=== PATIENT | male | born 1960 | race Caucasian/White ===

== ENCOUNTER 2021-10-20 12:46 | Outpatient (CLI) | payer OTHER | END 2021-10-20 12:47 | disposition critical access hospital (66) | LOC: EMS 12:46 | DX: R55 Syncope and collapse (principal) | CPT/HCPCS: A0425; A0427 ==

== ENCOUNTER 2021-10-20 13:17 | Emergency (ER) | payer OTHER ==
--- NOTE | 2021-10-20 13:29 | ED Physician Documentation ---
PD HPI SYNCOPE - Stated complaint Stated Complaint: LOC/BACK TO BASELINE - Chief complaint Chief Complaint: Neuro - History obtained from History obtained from: Patient - Additional information Additional information: Relatively healthy 60-year-old gentleman visiting family from [place]. He has history of cervical stenosis and chronic cough, not on any medications. No history of heart problems. He was driving today and felt a brief discomfort in the right anterior neck and reached up and pressed on the right anterior neck and then had a syncopal episode. The pain was only about 5 seconds before he passed out. He was reportedly unconscious for 15 to 30 seconds and then has made a full recovery and is asymptomatic at this time. No recent trouble breathing. No chest pains. No pedal edema or calf pain. Review of Systems Ten Systems: 10 systems reviewed and negative Constitutional: denies: Fever, Chills, Myalgias, Fatigue Nose: denies: Rhinorrhea / runny nose Cardiac: denies: Chest pain / pressure, Palpitations Respiratory: denies: Dyspnea, Cough PD PAST MEDICAL HISTORY - Past Medical History Past Medical History: Yes Other Past Medical History: Cervical spinal stenosis - Allergies Allergies/Adverse Reactions: Allergies Allergy/AdvReac Type Severity Reaction Status Date / Time doxycycline Allergy Rash Verified 10/20/21 13:22 - Living Situation Living Situation: reports: With spouse/s.o. - Social History Does the pt smoke?: No - Family History Family history: reports: Non contributory PD ED PE NORMAL - Vitals Vital signs reviewed: Yes - General General: Alert and oriented X 3, No acute distress - HEENT HEENT: PERRL, EOMI - Neck Neck: Supple, no meningeal sign, No bony TTP, No JVD, No bruit - Cardiac Cardiac: RRR, No murmur - Respiratory Respiratory: No respiratory distress, Clear bilaterally - Abdomen Abdomen: Non tender - Extremities Extremities: No edema, No calf tenderness / cord - Neuro Neuro: Alert and oriented X 3, No motor deficit, No sensory deficit, Normal speech Results - Vitals Vitals: Vital Signs - 24 hr 10/20/21 10/20/21 10/20/21 13:22 13:26 14:32 Temperature 36.5 C 36.5 C Heart Rate 66 66 Heart Rate [ 61 Sitting] Heart Rate [ 76 Standing] Heart Rate [ 58 L Supine] Respiratory 16 16 Rate Blood Pressure 157/69 H 157/69 H Blood Pressure 139/82 H [Sitting] Blood Pressure 113/85 H [Standing] Blood Pressure 137/90 H [Supine] O2 Saturation 97 97 10/20/21 10/20/21 15:26 16:50 Temperature 37.4 C Heart Rate 55 L 61 Heart Rate [ Sitting] Heart Rate [ Standing] Heart Rate [ Supine] Respiratory 15 16 Rate Blood Pressure 133/81 H 124/72 Blood Pressure [Sitting] Blood Pressure [Standing] Blood Pressure [Supine] O2 Saturation 98 99 Oxygen O2 Source Room air - EKG (time done) 1335 Rate: Rate (enter#) (59) Rhythm: NSR Perkins: Normal Intervals: Normal MO QRS: Normal Ischemia: Non specific changes (There is mild anterior ST elevation, about a millimeter at most in V2 and V3. It is concave and therefore less likely to be ischemic. There are no reciprocal changes. No prior EKGs available for comparison.) - Labs Labs: Laboratory Tests 10/20/21 10/20/21 10/20/21 13:27 13:27 13:27 WBC 5.6 RBC 4.20 L Hgb 13.1 L Hct 38.3 L MCV 91.2 MCH 31.2 H MCHC 34.2 RDW 12.7 Plt Count 267 MPV 9.8 Neut # (Auto) 2.9 Lymph # (Auto) 1.6 [place] # (Auto) 0.9 Eos # (Auto) 0.1 Baso # (Auto) 0.0 Absolute Nucleated RBC 0.00 Nucleated RBC % 0.0 D-Dimer Sodium 138 Potassium 4.0 Chloride 104 Carbon Dioxide 27 Anion Gap 7.0 BUN 19 Creatinine 1.0 Estimated GFR (MDRD) 77 L Glucose 102 H Calcium 9.9 Total Bilirubin 0.8 AST 25 ALT 38 Alkaline Phosphatase 34 L Troponin I High Sens 4.0 B-Natriuretic Peptide Total Protein 6.7 Albumin 4.1 Globulin 2.6 Albumin/Globulin Ratio 1.6 Lipase 33 10/20/21 10/20/21 13:27 13:35 WBC RBC Hgb Hct MCV MCH MCHC RDW Plt Count MPV Neut # (Auto) Lymph # (Auto) [place] # (Auto) Eos # (Auto) Baso # (Auto) Absolute Nucleated RBC Nucleated RBC % D-Dimer < 200.0 L Sodium Potassium Chloride Carbon Dioxide Anion Gap BUN Creatinine Estimated GFR (MDRD) Glucose Calcium Total Bilirubin AST ALT Alkaline Phosphatase Troponin I High Sens B-Natriuretic Peptide 10 Total Protein Albumin Globulin Albumin/Globulin Ratio Lipase PD MEDICAL DECISION MAKING - ED course ED course: 60-year-old gentleman presents after syncopal episode while driving. He is traveling so differential includes PE albeit he is not with any chest pain or trouble breathing. He felt some anterior neck pain at the time which is now mostly resolved, but it feels tender there he says. Given that he grabbed his neck right before the syncope my suspicion is he stimulated his carotid bodies causing the syncope his ED work-up was relatively unremarkable save very mild anemia which was discussed with the patient. Updating the and patient at the bedside they mentioned that they have a friend who is a emergency physician with 30 years experience and he recommended CT angiography of the head and neck. I discussed with him that I think this would be low yield but I am happy to order it. These were done without pertinent positive findings. He remained stable through ED observation. No ectopy, chest pain or syncope. Departure - Departure Disposition: 01 Home, Self Care Clinical Impression: Neck pain Syncope Qualifiers: Syncope type: vasovagal syncope Qualified Code(s): R55 - Syncope and collapse Condition: Good Record reviewed to determine appropriate education?: Yes Instructions: ED Syncope Vasovagal Comments: Take the copies of the results with you home and follow-up with your primary care physician on return to [place]. Return for new or worsening symptoms. Discharge Date/Time: 10/20/21 16:56
[2021-10-20 13:38] LABS: BASOPHILS % (AUTO) 0.5 %; EOSINOPHILS # (AUTO) 0.1 10^3/uL (0.0-0.7); EOSINOPHILS % (AUTO) 2.5 %; HCT - HEMATOCRIT 38.3 % (42.0-52.0); HGB - HEMOGLOBIN 13.1 g/dL (14.0-18.0); LYMPHOCYTES # (AUTO) 1.6 10^3/uL (1.5-3.5); LYMPHOCYTES % (AUTO) 28.8 %; MEAN CORPUSCULAR HEMOGLOBIN 31.2 pg (27.0-31.0); MEAN CORPUSCULAR HGB CONC 34.2 g/dL (32.0-36.0); MEAN CORPUSCULAR VOLUME 91.2 fL (80.0-94.0); MEAN PLATELET VOLUME 9.8 fL (7.4-11.4); MONOCYTES # (AUTO) 0.9 10^3/uL (0.0-1.0); MONOCYTES % (AUTO) 15.3 %; NEUTROPHILS # (AUTO) 2.9 10^3/uL (1.5-6.6); NEUTROPHILS % (AUTO) 52.5 %; PLT - PLATELET COUNT 267 10^3/uL (130-450); RED CELL DISTRIBUTION WIDTH 12.7 % (12.0-15.0); WHITE BLOOD COUNT 5.6 x10^3/uL (4.8-10.8)
[2021-10-20 14:11] LABS: ALBUMIN 4.1 g/dL (3.2-5.5); ALBUMIN/GLOBULIN RATIO 1.6 (1.0-2.2); BILIRUBIN,TOTAL 0.8 mg/dL (0.2-1.0); CALCIUM 9.9 mg/dL (8.5-10.3); TOTAL PROTEIN 6.7 g/dL (6.7-8.2)
[2021-10-20] MEDS ORDERED: IOPAMIDOL-300 100 ML VIAL ONE (14:56)
--- NOTE | 2021-10-20 16:33 | CT Report ---
PROCEDURE: ANGIO HEAD W/WO INDICATIONS: syncope/ neck pain CONTRAST: IV CONTRAST: Isovue 300 ml: 80 PO CONTRAST: *NO PO CONTRAST TECHNIQUE: Precontrast 4.5 mm thick angled axial sections acquired from the foramen magnum to the vertex. Afte r the administration of intravenous contrast, 1 mm thick sections acquired through the [place] of [place] is. Postcontrast 4.5 mm thick sections then re-acquired from the foramen magnum to the vertex. 3-di mensional rykszqy-rrigxsvni-ohtgpgzemx (MIP) and/or volume rendering reformats were acquired of the c entral intracranial vasculature. For radiation dose reduction, the following was used: automated ex posure control, adjustment of mA and/or kV according to patient size. COMPARISON: None FINDINGS: Image quality: Suboptimal due to contrast bolus timing. Anterior circulation: Intracranial internal carotid arteries are normal in size and flow. The flow within the paired anterior cerebral arteries is normal and symmetric. The flow within the middle cer ebral arteries is normal and symmetric. The anterior communicating artery is seen. No aneurysms are seen. Posterior circulation: The right vertebral artery is congenitally diminutive. Visualized portions of the vertebral arteries are normally opacified, and join to form a normal appearing basilar artery. V isible cerebellar arteries are patent. Flow within the posterior cerebral arteries is normal and symm etric. No aneurysms are seen. CSF spaces: Ventricles are normal in size and shape. Basal cisterns are patent. No extra-axial flu id collections. Brain: No midline shift. No intracranial bleeds or masses. Celis-white matter interface appears int act. Skull and face: Calvarium and facial bones appear intact, without suspicious lesions. Sinuses: Visualized sinuses and mastoids are clear. IMPRESSION: 1. No CT evidence of acute intracranial process. 2. Normal CTA of the brain without evidence of acute arterial stenosis, occlusion, or aneurysm. Reviewed by: Nuria Agudelo MD on 10/20/2021 4:32 PM PDT Approved by: Nuria Agudelo MD on 10/20/2021 4:32 PM PDT Station ID: [id number]
--- NOTE | 2021-10-20 16:37 | CT Report ---
PROCEDURE: ANGIO NECK W INDICATIONS: syncope/ neck pain CONTRAST: IV CONTRAST: Isovue 300 ml: 80 PO CONTRAST: *NO PO CONTRAST TECHNIQUE: After the administration of intravenous contrast, 1.5 mm axial sections acquired from the aortic arch to the [place] of [place]. Coronal 3-D maximum intensity projection (MIP) and/or volume rendering ref ormats were then performed. For radiation dose reduction, the following was used: automated exposur e control, adjustment of mA and/or kV according to patient size. COMPARISON: None. FINDINGS: Image quality: Suboptimal due to contrast bolus timing.. Carotid system: The great vessels demonstrate a conventional anatomy as they arise from the aortic a rch. The origins of the common carotid arteries appear patent. The common carotid arteries demonstr ate normal calibers and courses. The bifurcation regions appear normal bilaterally. The internal ca rotid arteries demonstrate normal caliber and course. Posterior circulation: The origins of the vertebral arteries appear patent. The left vertebral prem ry is dominant. The right appears patent. Right vertebral artery foramen is appropriately diminutive compared to the left. The more superior portions of the vertebral arteries demonstrate normal course and caliber. They join to form a normal appearing basilar artery. Soft tissues: Visualized neck soft tissues demonstrate no suspicious abnormalities. The thyroid is normal in size and there are no incidental findings. Bones: No suspicious bony lesions. Visualized cervical spine appears normally aligned. Mild multile hansa degenerative disc and endplate changes. No focal abnormalities. IMPRESSION: 1. No hemodynamically significant appearing stenosis of the carotid or vertebral system. 2. 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 The estimate of stenosis included in the report of the imaging study was calculated using the NASCET method CLINICAL RECOMMENDATION STATEMENTS: In patients <35 years with an ITN detected on CT, MRI, or extrathyroidal ultrasound, the Committee re commends further evaluation with dedicated thyroid ultrasound if the nodule is "e1 cm and has no susp icious imaging features, and if the patient has normal life expectancy. In patients "e35 years with an ITN detected on CT, MRI, or extrathyroidal ultrasound, the Committee r ecommends further evaluation with dedicated thyroid ultrasound if the nodule is "e1.5 cm and has no s uspicious imaging features, and if the patient has normal life expectancy. (ACR, 2014) Reviewed by: Nuria Agudelo MD on 10/20/2021 4:36 PM PDT Approved by: Nuria Agudelo MD on 10/20/2021 4:36 PM PDT Station ID: [id number]
[2021-10-20] MEDS ORDERED: IOPAMIDOL-300 100 ML VIAL IVP ONE (16:42)
[2021-10-20 16:51] VITALS: BP 124/72
== END 2021-10-20 16:56 | disposition home or self-care (01) ==
LOC: ED 13:17
DX: R55 Syncope and collapse (principal); M54.2 Cervicalgia
CPT/HCPCS: 36415; 70496; 70498; 80053; 83690; 83880; 84484; 85025; 85379; 93005; 99282; 99284; Q9967